=== PATIENT | female | born 1945 | race Caucasian/White ===

== ENCOUNTER → 2017-08-30 | Outpatient (CLI) | payer MEDICARE, BC ==
[~2017-08-30] MED LIST: MULT1TAB60 PO; ROSU10TA PO
[2017-08-30 11:14] LABS: BASOPHILS # (AUTO) 0.05 x10^3/uL (0-0.1); BASOPHILS % (AUTO) 1 % (0-1); EOSINOPHILS # (AUTO) 0.21 x10^3/uL (0-0.4); EOSINOPHILS % (AUTO) 4 % (1-7); LYMPHOCYTES # (AUTO) 1.67 x10^3/uL (1-3.4); LYMPHOCYTES % (AUTO) 30 % (22-44); MD NO; MEAN CORPUSCULAR HEMOGLOBIN 32.9 pg (27.0-34.8); MEAN CORPUSCULAR HGB CONC 33.6 g/dL (32.4-35.8); MEAN CORPUSCULAR VOLUME 97.8 fL (80-100); MEAN PLATELET VOLUME 7.5 fL (7.4-10.4); MONOCYTES # (AUTO) 0.48 x10^3/uL (0.2-0.8); MONOCYTES % (AUTO) 9 % (2-9); NEUTROPHILS # (AUTO) 3.19 x10^3/uL (1.8-6.8); NEUTROPHILS % (AUTO) 57 % (42-75); PLATELET COUNT 292 x10^3/uL (130-400); RED BLOOD COUNT 4.73 x10^6/uL (3.82-5.3)
[2017-08-30 11:20] LABS: ANION GAP 5 mmol/L (5-15); CALCIUM 8.3 mg/dL (8.5-10.1); CHLORIDE 105 mmol/L (98-107); CREATININE 0.65 mg/dL (0.55-1.02)
== END | disposition home or self-care (01) ==
LOC: STAR 10:12
PROVIDERS: ATTEND Obstetrics & Gynecology Female Pelvic Medicine and Reconstructive Surgery
DX: Z01.818 Encounter for other preprocedural examination (principal); N85.8 Other specified noninflammatory disorders of uterus; D25.9 Leiomyoma of uterus, unspecified; N85.2 Hypertrophy of uterus
CPT/HCPCS: 36415; 71046; 80048; 85025; 93005

== ENCOUNTER 2017-09-10 08:16 | Day surgery (SDC) | payer MEDICARE, BC ==
[~2017-09-10] VITALS: Ht 165.1 cm; Wt 71.8 kg
[2017-09-10] MEDS ORDERED: LACTATED RINGERS 1,000 ML IV SCH ×2 (09:06→14:50)
[2017-09-10 09:08] VITALS: BP 130/90
[2017-09-10] MEDS ORDERED: FENTANYL PF 250 MCG/5ML ONE (09:44)
[2017-09-10] MEDS ORDERED: MIDAZOLAM 1 MG/ML, 2ML ONE (09:44)
[2017-09-10] MEDS ORDERED: BUPIVACAINE/PF 0.25% ONE (10:21)
[2017-09-10] MEDS ORDERED: EPINEPHRINE 1 MG/ML, 1ML ONE (10:21)
[2017-09-10] MEDS ORDERED: ACETAMINOPHEN 500 MG TABLET ONE (10:25)
[2017-09-10] MEDS ORDERED: KETOROLAC 30 MG/1 ML ONE (10:45)
[2017-09-10] MEDS ORDERED: FLUORESCEIN SODIUM 500 MG/5 ML ONE (10:45)
[2017-09-10] MEDS ORDERED: NEOSTIGMINE 1 MG/ML, 10ML ONE ×2 (10:45→12:21)
[2017-09-10] MEDS ORDERED: OXYcodone 5 MG/5 ML ORAL.SOL UDC PO PRN ×2 (11:30→15:00)
[2017-09-10] MEDS ORDERED: LABETALOL 5MG/ML, 20ML IV PRN (11:30)
[2017-09-10] MEDS ORDERED: HYDROmorphone 1 MG/ML, 1ML IV PRN (11:30)
[2017-09-10] MEDS ORDERED: hydrALAzine 20 MG/ML, 1ML IV PRN (11:30)
[2017-09-10] MEDS ORDERED: LORazepam 2 MG/ML, 1ML IVPush PRN (11:30)
[2017-09-10] MEDS ORDERED: PROMETHAZINE 25 MG/ML, 1ML IV PRN (11:30)
[2017-09-10] MEDS ORDERED: FENTANYL PF 100 MCG/2ML IV PRN (11:30)
[2017-09-10] MEDS ORDERED: ALBUTEROL SULFATE 2.5 MG/3 ML NPPB PRN (11:30)
[2017-09-10] MEDS ORDERED: MEPERIDINE/PF 25MG/0.5ML IVPush PRN (11:30)
[2017-09-10] MEDS ORDERED: BUPIVACAINE/PF-EPI 0.25% 1:200K INFIL ONE (11:31)
[2017-09-10] MEDS ORDERED: DEXAMETHASONE 4 MG/ML, 1ML ONE (12:21)
[2017-09-10] MEDS ORDERED: GLYCOPYRROLATE 0.2MG/1ML, 5ML ONE (12:21)
[2017-09-10] MEDS ORDERED: CEFAZOLIN 1,000 MG ONE (12:21)
[2017-09-10] MEDS ORDERED: ONDANSETRON 2MG/ML, 2ML ONE (12:21)
[2017-09-10] MEDS ORDERED: SUCCINYLCHOLINE 20 MG/ML, 10ML ONE (12:21)
[2017-09-10] MEDS ORDERED: ROCURONIUM 10 MG/ML,10ML ONE (12:21)
[2017-09-10] MEDS ORDERED: PROPOFOL 10 MG/ML, 20ML ONE (12:21)
[2017-09-10] MEDS ORDERED: FENTANYL PF 100 MCG/2ML ONE (13:29)
[2017-09-10] MEDS ORDERED: OXYcodone 5 MG/5 ML ORAL.SOL UDC ONE (14:59)
[2017-09-10] MEDS ORDERED: PROMETHAZINE 12.5 MG SUPP PR ONE (15:00)
[2017-09-10] MEDS ORDERED: ONDANSETRON 2MG/ML, 2ML IVPush PRN (15:00)
[2017-09-10] MEDS ORDERED: IBUPROFEN 600 MG TABLET PO PRN (15:00)
[2017-09-10] MEDS ORDERED: OXYcodone/APAP 5/325MG TABLET PO PRN (15:00)
== END 2017-09-10 18:20 ==
LOC: OUT 08:16
PROVIDERS: ATTEND Obstetrics & Gynecology Female Pelvic Medicine and Reconstructive Surgery
DX: D25.9 Leiomyoma of uterus, unspecified (principal); N73.6 Female pelvic peritoneal adhesions (postinfective); Z88.0 Allergy status to penicillin; Z96.649 Presence of unspecified artificial hip joint; Z82.49 Family history of ischemic heart disease and other diseases of the circulatory system; Z87.39 Personal history of other diseases of the musculoskeletal system and connective tissue; Z98.890 Other specified postprocedural states
CPT/HCPCS: 58571; 88309; J0171; J0690; J1100; J1885; J2250; J2405; J2704; J2710; J3010; J3490; J7120; J0330